=== PATIENT | female | born 1980 | race African-American/Black ===

== ENCOUNTER 2021-04-06 18:17 | Emergency (ER) | payer BC, SELFPAY ==
[2021-04-06 18:25] VITALS: BP 144/76; PULSE 81; RESP 16; TEMP 36.2; O2SAT 100
--- NOTE | 2021-04-06 19:19 | ED.GENADULT ---
HPI - General Adult General Chief complaint: Unspecified Stated complaint: sore throat Source: patient Mode of arrival: ambulatory Limitations: no limitations History of Present Illness HPI narrative: Patient presents for evaluation after potential for evaluation after potential exposure to mononucleosis. Mother indicates that she received a phone call that there was a mono outbreak at her son's daycare. Mother was out of town last Monday through . She received a phone call today. She denies any fever, chills, nausea, vomiting, sore throat, otalgia, respiratory symptoms. She denies any symptoms whatsoever but states that she was bringing her children and for evaluation and thought that she should be checked while here too. Review of Systems Review of Systems: Narrative: CONSTITUTIONAL: Denies fever, chills, or sweats. EYES: Denies visual changes, redness, or discharge. ENT: Denies rhinorrhea, congestion, sore throat, or otalgia. CARDIOVASCULAR: Denies chest pain, palpitations, or edema. RESPIRATORY: Denies cough or dyspnea. GASTROINTESTINAL: Denies abdominal pain, nausea, vomiting, or diarrhea. GENITOURINARY: Denies dysuria or hematuria. SKIN: Denies rash or itching. MUSCULOSKELETAL: Denies back pain, joint pain, or myalgia. NEUROLOGIC: Denies headache, numbness, dizziness, or weakness. PSYCHIATRIC: Denies anxiety or depression. [facility] Past Medical History Medical History (Updated 04/06/21 @ 20:05 by Joe Bahena, CYTO[employer] TECH[employer]OLOGIST, ) No pertinent past medical history Surgical History Surgical History History of section Family History Family History Mother No pertinent past medical history Social History Social History (Updated 04/06/21 @ 19:22 by Joe Bahena [facility], ) Smoking status: Never smoker Alcohol intake: never Substance use: never Living arrangements: with family Gender identity (if verbalized by the patient): Female Sexual Orientation (if Verbalized by the Patient): Straight or Heterosexual Spiritual care concerns: No Exam Narrative: Exam Narrative: GENERAL: Well-appearing, well-nourished, and in no acute distress. HEAD: Normocephalic, atraumatic. EYES: PERRLA and EOMI. ENT: Nares clear, no rhinorrhea or epistaxis. Mucous membranes moist. Oropharynx without tonsillar hypertrophy exudate or other lesions. Bilateral TMs pearly christianson nonbulging NECK: Supple. No adenopathy or masses. No carotid bruits or JVD CHEST: Clear to auscultation. No respiratory distress. No wheezes rales or rhonchi HEART: Regular rate and rhythm. No murmur heard. Normal peripheral pulses. ABDOMEN: Soft, nontender, nondistended, normal active bowel sounds. EXTREMITIES: Normal range of motion. No edema. SKIN: Warm, dry, no rash. NEURO: No focal deficits. Alert and oriented x3. PSYCH: Normal mood and affect. Course Course Emergency Course: This is a 41-year-old female who presented for evaluation of potential mono exposure. She was asymptomatic. Her [place] was negative. She will be discharged with recommendations to follow-up outpatient return for worsening symptoms. Medical Decision Making Differential Diagnosis Differential Diagnosis: [place] versus mono exposure versus acute viral syndrome versus other Discharge Plan Discharge Clinical Impression: [place] exposure Patient Disposition: Home, Self-Care Condition: Stable Instructions: Antibiotic Form, Mononucleosis (ED) Patient Language: Azeri Follow-up/Referrals: UNKNOWN,DOCTOR [Primary Care Provider] - Jovany Dhillon MD [Physician] - Time of Disposition: 20:05
== END 2021-04-06 20:21 | disposition home or self-care (01) ==
PROVIDERS: Emergency Provider Nurse Practitioner
DX: Z20.828 Contact with and (suspected) exposure to other viral communicable diseases (principal)
CPT/HCPCS: 36416; 86308; 99203; G0463

== ENCOUNTER 2024-05-27 21:16 | Emergency (ER) | payer SELFPAY ==
[2024-05-27 21:22] VITALS: BP 151/111; PULSE 61; RESP 20; TEMP 36.2; O2SAT 100
--- NOTE | 2024-05-27 23:39 | PC.NURSE ---
Pt told this RN I am going home and walked out of emergency entrance. Pt marked as LWBS.
== END 2024-05-27 23:39 | disposition left against medical advice (07) ==
DX: I10 Essential (primary) hypertension (principal)
CPT/HCPCS: 99199